=== PATIENT | female | born 1985 | race Caucasian/White ===

== ENCOUNTER 2019-04-11 22:31 | Emergency (ER) | payer OTHER, SELFPAY ==
[2019-04-11 22:45] VITALS: BP 122/74; PULSE 103; RESP 12; TEMP 36.9; O2SAT 100
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
[2019-04-11 23:52] VITALS: BP 122/74; PULSE 86; RESP 17; TEMP 36.9; O2SAT 100
== END 2019-04-11 23:56 | disposition home or self-care (01) ==
PROVIDERS: Emergency Provider Emergency Medicine; PCP Internal Medicine Adolescent Medicine
DX: S80.02XA Contusion of left knee, initial encounter (principal); V40.5XXA Car driver injured in collision with pedestrian or animal in traffic accident, initial encounter; Y92.488 Other paved roadways as the place of occurrence of the external cause
CPT/HCPCS: 71045; 72170; 73562; 99281